=== PATIENT | male | born 1950 | race Caucasian/White ===

== ENCOUNTER → 2018-10-15 | Day surgery (SDC) | payer OTHER ==
[2018-10-13 11:44] VITALS: BMI 27.7
[2018-10-15 09:29] VITALS: TEMP 98
[2018-10-15 10:02] VITALS: BP 110/78; PULSE 66
--- NOTE | 2018-10-20 13:21 | PATH ---
Surgical Pathology Report Patient Name: RAKESH SOW [facility]. Rec. #: [id number] /Age/Gender: 1950 (Age: 67) / M Account: [id number] Location: [facility] Taken: 10/15/2018 Received: 10/15/2018 Reported: 10/20/2018 Physicians: Allan Fox M.D. Specimen(s) Received A: BX POLYP RIGHT COLON B: BX POLYP SIGMOID COLON C: BX POLYP RECTO-SIGMOID COLON Clinical History Screening Postoperative diagnosis: Colon polyps Final Diagnosis A. RIGHT COLON, POLYP, BIOPSY: COLONIC MUCOSA SHOWING BENIGN/REACTIVE LYMPHOID AGGREGATE. B. SIGMOID COLON, POLYP, BIOPSY: HYPERPLASTIC POLYP. C. RECTOSIGMOID, POLYP, BIOPSY: HYPERPLASTIC POLYP. Electronically Signed Mirian Pearson M.D. Gross Description A. Received in formalin, labeled "biopsy polyp right colon" is a masters, irregular portion of soft tissue measuring 0.4 cm. in greatest dimension. The specimen is submitted in toto in one cassette. B. Received in formalin, labeled "biopsy polyp sigmoid colon" are 2 masters, irregular portions of soft tissue measuring 0.4 and 0.5 cm. in greatest dimension. The specimens are submitted in toto in one cassette. C. Received in formalin, labeled "biopsy polyp rectosigmoid colon" is a masters, irregular portion of soft tissue measuring 0.3 cm. in greatest dimension. The specimen is submitted in toto in one cassette. /10/16/2018 saudi10/16/2018
== END | disposition home or self-care (01) ==
LOC: FASU-ENDO 07:56
PROVIDERS: ATTEND Internal Medicine Gastroenterology
PROC: 0DBK8ZX Excision of Ascending Colon, Via Natural or Artificial Opening Endoscopic, Diagnostic (ICD-10-PCS; 2018-10-15)
PROC: 0DBN8ZX Excision of Sigmoid Colon, Via Natural or Artificial Opening Endoscopic, Diagnostic (ICD-10-PCS; principal; 2018-10-15 09:06)
DX: Z12.11 Encounter for screening for malignant neoplasm of colon (principal); K63.5 Polyp of colon; K63.89 Other specified diseases of intestine
CPT/HCPCS: 88305-TC

== ENCOUNTER 2024-06-17 07:42 | Day surgery (SDC) | payer OTHER ==
[2024-06-15 16:06] VITALS: BMI 26.6
[2024-06-17 08:14] VITALS: RESP 18
[2024-06-17 10:01] VITALS: BP 112/60; PULSE 69; TEMP 98
== END 2024-06-17 09:30 | disposition home or self-care (01) ==
LOC: FASU-ENDO 07:42
PROVIDERS: ATTEND Internal Medicine Gastroenterology
PROC: 0DJD8ZZ Inspection of Lower Intestinal Tract, Via Natural or Artificial Opening Endoscopic (ICD-10-PCS; principal; 2024-06-17 08:50)
DX: Z12.11 Encounter for screening for malignant neoplasm of colon (principal)